=== PATIENT | female | born 1990 | race African-American/Black ===

== ENCOUNTER 2016-07-29 13:08 | Inpatient (IN) | payer OTHER ==
[2016-07-29 14:04] VITALS: BMI 27.4
--- NOTE | 2016-07-29 15:01 | HP ---
CIWA Score - CIWA Score Nausea/Vomitin Muscle Tremors: 4-Moderate,w/Arms Extend Anxiety: 3 Agitation: 3 Paroxysmal Sweats: 3 Orientation: 0-Oriented Tacttile Disturbances: 3-Moderate Itch/Numb/Burn Auditory Disturbances: 0-None Visual Disturbances: 0-None Headache: 0-None Present CIWA-Ar Total Score: 19 Admission ROS BHS - HPI Chief Complaint: paient reports she would like to stop drinking alcohol and go to rehab after detox Allergies/Adverse Reactions: Allergies Allergy/AdvReac Type Severity Reaction Status Date / Time No Known Allergies Allergy Verified 07/29/16 15:01 History of Present Illness: 25 yo f w h/o psychiatric illness, unknown dx, but hospitalized last year when she had suicidal ideation, no suicidal ideation at present reports drinking alcohol, spirits/[place] ice tea, daily until she falls asleep, reports alcohol withdrawal syndrome with tremors, sweats, anxiety, depression and insomnia when she does not drink, and smokes marijuana daily. no h/o seizures or DTs in past, denies all other illicit drug use, no h/o drug treatment or detox in past. PMHX nictoine dependence with withdrwal sx otherwise neg, not on any medications. last drink and smoke this am. Exam Limitations: No Limitations - Ebola screening Have you traveled outside of the country in the last 21 days: No Have you had contact with anyone from an Ebola affected area: No Have you been sick,other than usual withdrawal symptoms: No Do you have a fever: No - Review of Systems Constitutional: No Symptoms Reported EENT: reports: No Symptoms Reported Respiratory: reports: No Symptoms reported Cardiac: reports: No Symptoms Reported GI: reports: No Symptoms Reported : reports: No Symptoms Reported Integumentary: reports: Sweating (LELA) Neuro: reports: Tremors (LELA) Endocrine: reports: No Symptoms Reported Hematology: reports: No Symptoms Reported Psychiatric: reports: Judgement Intact, Mood/Affect Appropiate, Orientated x3, Agitated, Anxious, Depressed Other Systems: Reviewed and Negative Patient History - Patient Medical History Hx Anemia: No Hx Asthma: No Hx Chronic Obstructive Pulmonary Disease (COPD): No Hx Cancer: No Hx Cardiac Disorders: No Hx Congestive Heart Failure: No Hx Hypertension: No Hx Hypercholesterolemia: No Hx Pacemaker: No HX Cerebrovascular Accident: No Hx Seizures: No Hx Dementia: No Hx Diabetes: No Hx Gastrointestinal Disorders: No Hx Liver Disease: No Hx Genitourinary Disorders: No Hx Sexually Transmitted Disorders: No Hx Renal Disease (ESRD): No Hx Thyroid Disease: No Hx Human Immunodeficiency Virus (HIV): No Hx Hepatitis C: No Hx Depression: Yes (? does not know her diagnosis) Hx Suicide Attempt: Yes (2016 was hospitalized) Hx Bipolar Disorder: No Hx Schizophrenia: No - Patient Surgical History Past Surgical History: Yes Hx Neurologic Surgery: No Hx Cataract Extraction: No Hx Cardiac Surgery: No Hx Lung Surgery: No Hx Breast Surgery: No Hx Breast Biopsy: No Hx Abdominal Surgery: No Hx Appendectomy: No Hx Cholecystectomy: No Hx Genitourinary Surgery: No Hx Section: Yes (x1 2010) Hx Orthopedic Surgery: No Hx Hysterectomy: No Anesthesia Reaction: No - PPD History Previous Implant?: Yes Documented Results: Negative w/proof Implanted On Prior R Admission?: No PPD to be Administered?: Yes - Reproductive History Patient is a Female of Child Bearing Age (11 -55 yrs old): Yes Patient : No - Smoking Cessation Smoking history: Current every day smoker Have you smoked in the past 12 months: Yes Aproximately how many cigarettes per day: 10 Hx Chewing Tobacco Use: No Initiated information on smoking cessation: Yes 'Breaking Loose' booklet given: 07/29/16 - Substance & Tx. History Hx Alcohol Use: (daily alcohol use, [place] ice tea with LELA/tremors) Hx Substance Use: Yes Substance Use Type: Alcohol, Marijuana Hx Substance Use Treatment: No - Substances Abused Alcohol Route: Oral Frequency: Daily Amount used: until she falls asleep, [place] ice teas Age of first use: 15 Date of Last Use: 07/29/16 Marijuana/Hashish Route: Smoking Frequency: Daily Amount used: $40 Age of first use: 15 Date of Last Use: 07/29/16 Family Disease History - Family Disease History Family Disease History: Diabetes: Mother, Other: Father (alcoholic ) Admission Physical Exam BHS - Vital Signs Vital Signs: Vital Signs - 24 hr 07/29/16 14:01 Temperature 96.4 F L Pulse Rate 88 Respiratory 16 Rate Blood Pressure 94/57 - Physical General Appearance: Yes: Nourished, Appropriately Dressed, Disheveled, Mild Distress, Tremorous, Sweating, Anxious HEENTM: Yes: Within Normal Limits, EOMI, Hearing grossly Normal, Normal ENT Inspection, Normocephalic, Normal Voice, LUISANA, Pharynx Normal Respiratory: Yes: Within Normal Limits, Chest Non-Tender, Lungs Clear, Normal Breath Sounds, No Respiratory Distress, No Accessory Muscle Use Neck: Yes: Within Normal Limits, No masses,lesions,Nodules, Supple, Trachea in good position Breast: Yes: Breast Exam Deferred Cardiology: Yes: Within Normal Limits, Regular Rhythm, Regular Rate, S1, S2 Abdominal: Yes: Within Normal Limits, Normal Bowel Sounds, Non Tender, Flat, Soft Genitourinary: Yes: Within Normal Limits Back: Yes: Within Normal Limits, Normal Inspection Musculoskeletal: Yes: full range of Motion, Gait Steady, Pelvis Stable, Muscle Pain (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, no bony tenderness) Extremities: Yes: Within Normal Limits, Normal Capillary Refill, Normal Inspection, Normal Range of Motion, Non-Tender Neurological: Yes: manuscripts archivist II-XII NML intact, Fully Oriented, Alert, Motor Strength 5/5, Normal Response, Depressed Affect Integumentary: Yes: Normal Color, Warm Lymphatic: Yes: Within Normal Limits - Addiitonal Findings: withdrawal sx - Diagnostic (1) Alcohol dependence with uncomplicated withdrawal Current Visit: Yes Status: Acute (2) Nicotine dependence Current Visit: Yes Status: Acute (3) Cannabis dependence Current Visit: Yes Status: Acute (4) Insomnia Current Visit: Yes Status: Acute (5) Anxiety Current Visit: Yes Status: Acute (6) Depression Current Visit: Yes Status: Acute Cleared for Admission [facility] - Detox or Rehab [facility] Level of Care: Medically Managed Detox Regimen/Protocol: Librium [facility] Breath Alcohol Content Breath Alcohol Content: 0.045 Urine Pregancy Test - Result Urine Test Results: Negative- NO Line Present Urine Drug Screen - Control Is Test Valid: Yes - Results Drug Screen Negative: No Urine Drug Screen Results: THC-Marijuana
[2016-07-29] MEDS ORDERED: guaiFENesin/D-METHORPHAN HB 10 ML UNIT-DOSE CUPS PO PRN (15:02)
[2016-07-29] MEDS ORDERED: NICOTINE POLACRILEX 2 MG GUM BUC PRN (15:02)
[2016-07-29] MEDS ORDERED: ACETAMINOPHEN 325 MG TABLET (FP) PO PRN (15:02)
[2016-07-29] MEDS ORDERED: P-EPHED 60MG/TRIPROLIDI 2.5MG TABLET PO PRN (15:02)
[2016-07-29] MEDS ORDERED: IBUPROFEN 400 MG TABLET (FP) PO PRN (15:02)
[2016-07-29] MEDS ORDERED: LOPERAMIDE HCL 2 MG CAPSULE PO PRN (15:02)
[2016-07-29] MEDS ORDERED: chlordiazePOXIDE HCL 25 MG CAPSULE PO PRN (15:02)
[2016-07-29] MEDS ORDERED: MAGNESIUM CITRATE 300 ML BOTTLE PO PRN (15:02)
[2016-07-29] MEDS ORDERED: MENTHOL/PHENOL 1 EACH UD MM PRN (15:02)
[2016-07-29] MEDS ORDERED: hydrOXYzine PAMOATE 50 MG CAPSULE (FP) PO PRN (15:02)
[2016-07-29] MEDS ORDERED: MAGNESIUM HYDROX 2400MG/30ML ORAL SUSPENSION 30 ML CUP PO PRN (15:02)
[2016-07-29] MEDS ORDERED: MAG HYDROX/AL HYDROX/SIMETH 30 ML UNIT-DOSE CUP PO PRN (15:02)
[2016-07-29] MEDS ORDERED: chlordiazePOXIDE HCL 25 MG CAPSULE PO ONE (17:30)
[2016-07-29] MEDS: chlordiazePOXIDE HCL 25 MG CAPSULE PO SCH ×2 (18:23→22:50)
[2016-07-29] MEDS: NICOTINE 14 MG/24 HOURS TOPICAL PATCH TD SCH (18:41)
[2016-07-29] MEDS ORDERED: diphenhydrAMINE HCL 50 MG CAPSULE PO PRN (22:00)
[2016-07-29] MEDS: THIAMINE HCL 100 MG TABLET (FP) PO SCH (22:49)
[2016-07-29 22:59] LABS: URINE APPEARANCE CLEAR; URINE BILIRUBIN NEGATIVE (NEGATIVE); URINE BLOOD NEGATIVE (NEGATIVE); URINE COLOR STRAW; URINE GLUCOSE (UA) NEGATIVE (NEGATIVE); URINE KETONE NEGATIVE (NEGATIVE); URINE LEUK ESTERASE NEGATIVE (NEGATIVE); URINE NITRITE NEGATIVE (NEGATIVE); URINE PROTEIN NEGATIVE (NEGATIVE); URINE UROBILINOGEN NEGATIVE E.U./dl (0.2-1.0)
[2016-07-30] MEDS: chlordiazePOXIDE HCL 25 MG CAPSULE PO SCH ×4 (07:47→22:49)
[2016-07-30 10:53] LABS: ALBUMIN 3.4 g/dl (3.4-5.0); ANION GAP 9 (8-16); CALCIUM 8.5 mg/dL (8.5-10.1); CO2 29 mmol/L (21-32); CREATININE 0.6 mg/dL (0.55-1.02); GLUCOSE,RANDOM 81 mg/dL (74-106); SGOT/AST 16 U/L (15-37); SGPT/ALT 30 U/L (12-78)
[2016-07-30 10:55] LABS: ALK PHOS 74 U/L (45-117); BILIRUBIN,TOTAL 0.2 mg/dL (0.2-1.0)
[2016-07-30 10:55] LABS: MCH 25.6 pg (25.7-33.7); MCHC 32.1 g/dl (32.0-36.0); MEAN CELL VOLUME 79.9 fl (80-96); MEAN PLT VOLUME 8.7 fl (7.5-11.1); PLATELET COUNT 255 K/MM3 (134-434); RDW 18.6 % (11.6-15.6); WHITE BLOOD COUNT 6.9 K/mm3 (4.0-10.0)
[2016-07-30] MEDS: NICOTINE 14 MG/24 HOURS TOPICAL PATCH TD SCH (12:38)
[2016-07-30] MEDS: PRENATAL VITAMINS W/ FOLIC ACID TABLET (FP) PO SCH (12:38)
[2016-07-30 13:18] LABS: SICKLE CELL SCREEN NEGATIVE (NEGATIVE)
[2016-07-30 14:15] LABS: HIV 1 & 2 AB NEGATIVE; HIV 1 AGp24 NEGATIVE
--- NOTE | 2016-07-30 14:41 | PN ---
S CIWA - CIWA Score Nausea/Vomitin Muscle Tremors: 3 Anxiety: 3 Agitation: 2 Paroxysmal Sweats: 1-Minimal Palms Moist Orientation: 0-Oriented Tacttile Disturbances: 1-Very Mild Itch/Numbness Auditory Disturbances: 1-Very Mild Visual Disturbances: 1-Very Mild Sensitivity Headache: 2-Mild CIWA-Ar Total Score: 17 BHS Progress Note (SOAP) Subjective: ALERT,IRRITABLE,ANXIOUS,INTERRUPTED SLEEP,TREMOR Objective: 07/30/16 14:39 Vital Signs Temperature 98.1 F 07/30/16 10:41 Pulse Rate 75 07/30/16 10:41 Respiratory Rate 20 07/30/16 10:41 Blood Pressure 111/61 07/30/16 10:41 O2 Sat by Pulse Oximetry (%) EKG NSR,NORMAL ECG Laboratory Last Values WBC 6.9 K/mm3 (4.0-10.0) 07/30/16 06:00 RBC 3.99 M/mm3 (3.60-5.2) 07/30/16 06:00 Hgb 10.2 GM/dL (10.7-15.3) L 07/30/16 06:00 Hct 31.9 % (32.4-45.2) L 07/30/16 06:00 MCV 79.9 fl (80-96) L 07/30/16 06:00 MCHC 32.1 g/dl (32.0-36.0) 07/30/16 06:00 RDW 18.6 % (11.6-15.6) H 07/30/16 06:00 Plt Count 255 K/MM3 (134-434) 07/30/16 06:00 MPV 8.7 fl (7.5-11.1) 07/30/16 06:00 Sickle Cell Screen Negative (NEGATIVE) 07/30/16 06:00 Sodium 143 mmol/L (136-145) 07/30/16 08:00 Potassium 4.3 mmol/L (3.5-5.1) 07/30/16 08:00 Chloride 105 mmol/L (98-107) 07/30/16 08:00 Carbon Dioxide 29 mmol/L (21-32) 07/30/16 08:00 Anion Gap 9 (8-16) 07/30/16 08:00 BUN 6 mg/dL (7-18) L 07/30/16 08:00 Creatinine 0.6 mg/dL (0.55-1.02) 07/30/16 08:00 Creat Clearance w eGFR > 60 (>60) 07/30/16 08:00 Random Glucose 81 mg/dL (74-106) 07/30/16 08:00 Calcium 8.5 mg/dL (8.5-10.1) 07/30/16 08:00 Total Bilirubin 0.2 mg/dL (0.2-1.0) 07/30/16 08:00 AST 16 U/L (15-37) 07/30/16 08:00 ALT 30 U/L (12-78) 07/30/16 08:00 Alkaline Phosphatase 74 U/L (45-117) 07/30/16 08:00 Total Protein 6.0 g/dl (6.4-8.2) L 07/30/16 08:00 Albumin 3.4 g/dl (3.4-5.0) 07/30/16 08:00 Urine Color Straw 07/29/16 22:05 Urine Appearance Clear 07/29/16 22:05 Urine pH 5.0 (5.0-8.0) 07/29/16 22:05 Ur Specific [place] 1.006 (1.001-1.035) 07/29/16 22:05 Urine Protein Negative (NEGATIVE) 07/29/16 22:05 Urine Glucose (UA) Negative (NEGATIVE) 07/29/16 22:05 Urine Ketones Negative (NEGATIVE) 07/29/16 22:05 Urine Blood Negative (NEGATIVE) 07/29/16 22:05 Urine Nitrite Negative (NEGATIVE) 07/29/16 22:05 Urine Bilirubin Negative (NEGATIVE) 07/29/16 22:05 Urine Urobilinogen Negative E.U./dl (0.2-1.0) 07/29/16 22:05 Ur Leukocyte Esterase Negative (NEGATIVE) 07/29/16 22:05 HIV 1&2 Antibody Screen Negative 07/30/16 08:00 HIV P24 Antigen Negative 07/30/16 08:00 Assessment: 07/30/16 14:40 WITHDRAWAL SYMPTOM Plan: CONTINUE DETOX
--- NOTE | 2016-07-30 17:05 | CONSULT ---
[facility] Psychiatric Consult - Data Date of interview: 07/30/16 Admission source: [facility] Identifying data: First admission to [facility] for this 25 y/o AA female seeking detox treatment on for alcohol and marijuana dependence.Patient is single,a mother of one,homeless,unemployed and supported on food stamps. Substance Abuse History: - Smoking Cessation. Smoking history: Current every day smoker. Have you smoked in the past 12 months: Yes. Aproximately how many cigarettes per day: 10. Hx Chewing Tobacco Use: No. Initiated information on smoking cessation: Yes. 'Breaking Loose' booklet given: 07/29/16. - Substance & Tx. History. Hx Alcohol Use: (daily alcohol use, [place] ice tea with LELA/tremors). Hx Substance Use: Yes. Substance Use Type: Alcohol, Marijuana. Hx Substance Use Treatment: No. - Substances Abused. Alcohol. Route: Oral. Frequency: Daily. Amount used: until she falls asleep, [place] ice teas. Age of first use: 15. Date of Last Use: 07/29/16. Marijuana/ Hashish. Route: Smoking. Frequency: Daily. Amount used: $40. Age of first use: 15. Date of Last Use: 07/29/16. Confirmed by patient in this interview. Medical History: Patient endorses good general health. Psychiatric History: History of one psychiatric hospitalizationin 2013 at [facility] (eloped after 24 hrs of retention).Never rehospitalized.Diagnosis remains unclear.No OPD care and no previous trial with psychotropic medications.Ms Hale informs that she is involved with [facility] and the Court for mandated treatment for substance abuse.She reports one suicide attempt via overdose with " pills " in 2013 (which was the circumstance of her hospitalization). Physical/Sexual Abuse/Trauma History: Patient denies. Additional Comment: Urine Drug Screen Results: THC-Marijuana.Noted. Mental Status Exam - Mental Status Exam Alert and Oriented to: Time, Place, Person Cognitive Function: Good Patient Appearance: Well Groomed Mood: Hopeful, Euthymic Affect: Appropriate, Normal Range Patient Behavior: Appropriate, Cooperative Speech Pattern: Clear Voice Loudness: Normal Thought Process: Goal Oriented Thought Disorder: Not Present Hallucinations: Denies Suicidal Ideation: Denies Homicidal Ideation: Denies Insight/Judgement: Poor Sleep: Poorly, Difficulty falling asleep Appetite: Good Muscle strength/Tone: Normal Gait/Station: Normal Psychiatric Findings - Problem List ([place] 1, 2,3) (1) Alcohol dependence with uncomplicated withdrawal Current Visit: Yes Status: Acute (2) Cannabis dependence Current Visit: Yes Status: Acute (3) Nicotine dependence Current Visit: Yes Status: Acute (4) Insomnia Current Visit: Yes Status: Acute - Initial Treatment Plan Initial Treatment Plan: Psychoeducation.Detoxification.Zolpidem 10 mg po hs prn.Patient made aware of the risk of parasomnias.She agrees with this careplan.Observation.
--- NOTE | 2016-07-30 18:44 | EKG ---
Test Reason : Blood Pressure : / mmHG Vent. Rate : 069 BPM Atrial Rate : 069 BPM P-R Int : 168 ms QRS Dur : 072 ms QT Int : 378 ms P-R-T Axes : 041 032 020 degrees QTc Int : 405 ms NORMAL SINUS RHYTHM NORMAL ECG NO PREVIOUS ECGS AVAILABLE Confirmed by FRANK HALLMAN MD (2016) on 07/30/2016 6:44:03 PM Referred By: Confirmed By:FRANK HALLMAN MD
[2016-07-30] MEDS: THIAMINE HCL 100 MG TABLET (FP) PO SCH (22:48)
[2016-07-30] MEDS: ZOLPIDEM TARTRATE 10 MG TABLET (PARK CARE ONLY) PO PRN (22:49)
[2016-07-31] MEDS: chlordiazePOXIDE HCL 25 MG CAPSULE PO SCH ×2 (08:29→10:52)
[2016-07-31] MEDS: PRENATAL VITAMINS W/ FOLIC ACID TABLET (FP) PO SCH (10:52)
[2016-07-31] MEDS: NICOTINE 14 MG/24 HOURS TOPICAL PATCH TD SCH (10:52)
--- NOTE | 2016-07-31 13:04 | PN ---
S CIWA - CIWA Score Nausea/Vomitin Muscle Tremors: 3 Anxiety: 2 Agitation: 2 Paroxysmal Sweats: 1-Minimal Palms Moist Orientation: 0-Oriented Tacttile Disturbances: 1-Very Mild Itch/Numbness Auditory Disturbances: 1-Very Mild Visual Disturbances: 1-Very Mild Sensitivity Headache: 2-Mild CIWA-Ar Total Score: 16 BHS Progress Note (SOAP) Subjective: ALERT,IRRITABLE,ANXIOUS,INTERRUPTED SLEEP Objective: 07/31/16 13:03 Vital Signs Temperature 98.1 F 07/31/16 11:10 Pulse Rate 61 07/31/16 11:10 Respiratory Rate 20 07/31/16 11:10 Blood Pressure 107/61 07/31/16 11:10 O2 Sat by Pulse Oximetry (%) Assessment: 07/31/16 13:04 WITHDRAWAL SYMPTOM Plan: CONTINUE DETOX
[2016-07-31] MEDS: chlordiazePOXIDE 5 MG CAPSULE PO SCH ×2 (20:33→22:19)
[2016-07-31] MEDS: ZOLPIDEM TARTRATE 10 MG TABLET (PARK CARE ONLY) PO PRN (22:18)
[2016-07-31] MEDS: THIAMINE HCL 100 MG TABLET (FP) PO SCH (22:19)
[2016-08-01] MEDS: chlordiazePOXIDE 5 MG CAPSULE PO SCH ×2 (07:01→10:43)
[2016-08-01] MEDS: PRENATAL VITAMINS W/ FOLIC ACID TABLET (FP) PO SCH (10:43)
--- NOTE | 2016-08-01 11:14 | PN ---
BHS Progress Note (SOAP) Subjective: tired little sweats Objective: 08/01/16 11:13 Vital Signs Temperature 97.7 F 08/01/16 10:21 Pulse Rate 76 08/01/16 10:21 Respiratory Rate 16 08/01/16 10:21 Blood Pressure 114/58 08/01/16 10:21 O2 Sat by Pulse Oximetry (%) awake/alert ambulating no acute distress Assessment: 08/01/16 11:14 withdrawal sx Plan: continue detox increase fluids d/c in am
[2016-08-01] MEDS: NICOTINE 14 MG/24 HOURS TOPICAL PATCH TD SCH (11:23)
[2016-08-01] MEDS: chlordiazePOXIDE HCL 10 MG CAPSULE PO SCH ×2 (18:06→22:50)
[2016-08-01] MEDS: THIAMINE HCL 100 MG TABLET (FP) PO SCH (22:50)
[2016-08-01] MEDS: ZOLPIDEM TARTRATE 10 MG TABLET (PARK CARE ONLY) PO PRN (22:50)
[2016-08-02] MEDS: chlordiazePOXIDE HCL 10 MG CAPSULE PO SCH ×2 (05:25→10:52)
[2016-08-02 07:04] VITALS: TEMP 97.7
--- NOTE | 2016-08-02 08:57 | DS ---
[facility] Detox Discharge Summary Admission Date: 07/29/16 Discharge Date: 08/02/16 - History Present History: Alcohol Dependence, Cannabis Dependence - Physical Exam Results Vital Signs: Vital Signs Temperature 97.7 F 08/02/16 07:04 Pulse Rate 65 08/02/16 07:04 Respiratory Rate 16 08/02/16 07:04 Blood Pressure 98/63 08/02/16 07:04 O2 Sat by Pulse Oximetry (%) - Treatment Hospital Course: Detox Protocol Followed, Detoxed Safely, Responded well, Discharged Condition Good, Rehab Referral Accepted - Medication Discharge Medications: Ambulatory Orders NK [No Known Home Medication] 07/29/16 - Diagnosis (1) Alcohol dependence with uncomplicated withdrawal Current Visit: Yes Status: Chronic (2) Anxiety Current Visit: Yes Status: Acute (3) Cannabis dependence Current Visit: Yes Status: Chronic (4) Depression Current Visit: Yes Status: Acute (5) Insomnia Current Visit: Yes Status: Acute (6) Nicotine dependence Current Visit: Yes Status: Chronic Qualifiers: Nicotine product type: cigarettes Substance use status: uncomplicated Qualified Code(s): F17.210 - Nicotine dependence, cigarettes, uncomplicated - AMA Did Patient Leave Against Medical Advice: No
[2016-08-02 10:40] VITALS: BP 114/66; PULSE 72
[2016-08-02] MEDS: PRENATAL VITAMINS W/ FOLIC ACID TABLET (FP) PO SCH (10:51)
[2016-08-02] MEDS: NICOTINE 14 MG/24 HOURS TOPICAL PATCH TD SCH (10:52)
== END 2016-08-02 12:08 | disposition home or self-care (01) | DRG 775 ==
LOC: YASAS 13:08 → Y6N 16:34
PROVIDERS: ADMIT Internal Medicine; ATTEND Internal Medicine
PROC: HZ2ZZZZ Detoxification Services for Substance Abuse Treatment (ICD-10-PCS; principal; 2016-08-02)
DX: F10.230 Alcohol dependence with withdrawal, uncomplicated (principal); F12.20 Cannabis dependence, uncomplicated; F17.210 Nicotine dependence, cigarettes, uncomplicated; F41.8 Other specified anxiety disorders; G47.00 Insomnia, unspecified
CPT/HCPCS: 36415; 80053; 81003; 85027; 85660; 86593; 87389; 93005; 93010